=== PATIENT | male | born 1960 | race Native Hawaiian/Other Pacific Islander ===

== ENCOUNTER 2016-11-08 08:21 | Outpatient (CLI) | payer OTHER ==
[~2016-11-08 08:21] MED LIST: ALPR0.5T24 PO; CITALOPRAM20 MG PO; COZAAR25 MG PO; LORCET HD 10-321 TAB PO; NEURONTIN 100M100 MG OR; PHEN100C15 PO; TAMS0.4C PO; TRILEPTAL300 MG OR
[2016-11-08 09:15] LABS: POTASSIUM 4.6 mmol/L (3.6-5.2); SODIUM 124 mmol/L (136-145)
== END 2016-11-08 19:06 | disposition home or self-care (01) ==
LOC: LABW 08:21
PROVIDERS: Specialist
DX: R20.2 Paresthesia of skin (principal); Z86.69 Personal history of other diseases of the nervous system and sense organs
CPT/HCPCS: 36415; 80048; 80183; 80185

== ENCOUNTER 2017-01-29 09:22 | Outpatient (CLI) | payer OTHER ==
[2017-01-29 11:26] LABS: POTASSIUM 4.8 mmol/L (3.6-5.2); SODIUM 127 mmol/L (136-145)
== END 2017-01-29 19:11 | disposition home or self-care (01) ==
LOC: LABW 09:22
PROVIDERS: Specialist
DX: E87.1 Hypo-osmolality and hyponatremia (principal)
CPT/HCPCS: 36415; 80048

== ENCOUNTER 2017-07-30 10:22 | Outpatient (CLI) | payer OTHER ==
[2017-07-30 10:46] LABS: POTASSIUM 5.1 mmol/L (3.6-5.2); SODIUM 132 mmol/L (136-145)
== END 2017-07-30 18:58 | disposition home or self-care (01) ==
LOC: LABW 10:22
PROVIDERS: Specialist
DX: E87.1 Hypo-osmolality and hyponatremia (principal)
CPT/HCPCS: 36415; 80053

== ENCOUNTER 2020-09-03 09:00 | Outpatient (CLI) | payer OTHER | END 2020-09-03 22:17 | disposition home or self-care (01) | LOC: RESP 09:00 | PROVIDERS: ATTEND Specialist | DX: G40.209 Localization-related (focal) (partial) symptomatic epilepsy and epileptic syndromes with complex partial seizures, not intractable, without status epilepticus (principal) ==